=== PATIENT | male | born 1955 | race Caucasian/White ===

== ENCOUNTER 2017-08-29 13:49 | Inpatient (IN) | payer BC, OTHER ==
[~2017-08-29 13:49] MED LIST: ALBUAER3 INH; CLON0.5T PO; LOSA50TA PO; METO25TA3 PO; MIRTA15 PO; NORC5TAB PO; RISP0.5T25 PO
[2017-08-29 14:29] VITALS: BP 131/90; PULSE 96; RESP 16; TEMP 98.7; O2SAT 96
[2017-08-29 14:59] LABS: AUTOMATED NEUTROPHIL # 5.4 TH/MM3 (1.8-7.7); BASOPHIL % 0.4 % (0.0-2.0); BILIRUBIN, URINE NEG (NEG); BLOOD, URINE MOD (NEG); EOSINOPHIL # 0.1 TH/MM3 (0-0.4); GLUCOSE,URINE NEG (NEG); HEMOGLOBIN 13.8 GM/DL (13.0-17.0); HYALINE CAST, URINE 7 /lpf (RARE); KETONE, URINE NEG (NEG); LYMPH % 20.4 % (9.0-44.0); LYMPHOCYTE # 1.6 TH/MM3 (1.0-4.8); MEAN CORPUSCULAR HGB CONC 35.5 % (32.0-36.0); MEAN PLATELET VOLUME 6.6 FL (7.0-11.0); MONO % 9.4 % (0.0-8.0); MONOCYTE # 0.7 TH/MM3 (0-0.9); NEUT % 68.8 % (16.0-70.0); NITRITE,URINE NEG (NEG); PLATELET COUNT 288 TH/MM3 (150-450); RED BLOOD COUNT 4.19 MIL/MM3 (4.50-5.90); RED CELL DISTRIBUTION WIDTH 14.4 % (11.6-17.2); URINE COLOR YELLOW (YELLW/STRAW); URINE LEUKOCYTE ESTERASE NEG (NEG); WHITE BLOOD COUNT 7.8 TH/MM3 (4.0-11.0)
[2017-08-29 15:07] LABS: ALBUMIN 3.7 GM/DL (3.4-5.0); ALT (GPT) 25 U/L (12-78); AST (GOT) 22 U/L (15-37); BICARBONATE 29.9 MEQ/L (21.0-32.0); BLOOD UREA NITROGEN 8 MG/DL (7-18); CALCIUM 8.5 MG/DL (8.5-10.1); CHLORIDE 99 MEQ/L (98-107); CREATININE 0.78 MG/DL (0.60-1.30); GLOMERULAR FILTRATION RATE 100 ML/MIN (>89); GLUCOSE,RANDOM 94 MG/DL (74-106); SODIUM (NA) 135 MEQ/L (136-145)
[2017-08-29 15:17] LABS: ALKALINE PHOSPHATASE 91 U/L (45-117); TOTAL BILIRUBIN ADULT 0.7 MG/DL (0.2-1.0); TOTAL PROTEIN 7.1 GM/DL (6.4-8.2)
--- NOTE | 2017-08-29 15:33 | PD ---
HPI Chief Complaint: Psychiatric Symptoms Time Seen by Provider: 14:17 Travel History International Travel<30 days: No Contact w/Intl Traveler<30days: No History of Present Illness HPI 62-year-old [place] , is brought in under the Street act with suicidal ideation and reports of PTSD symptoms after stopping his meds due to "side effects". Patient complains of ongoing left leg pain which occurs with ambulation, and improves with rest. Patient states he can walk approximately 10 minutes before the pain gets so bad he has to stop. He describes as a muscular pain from the calf up into the thigh. He has no swelling or edema noted. Patient has never been diagnosed with claudication prior according to him. He denies any other acute medical problems. He is allergic to ibuprofen, methocarbamol, morphine, Naprosyn, and tramadol PFSH Past Medical History Depression: Yes Cancer: No Cardiovascular Problems: Yes COPD: Yes Diabetes: No Headaches: No Hypertension: Yes Psychiatric: Yes (Multiple Event Continuious Action PTSD, per patient) Seizures: No Social History Alcohol Use: No (UTO) Tobacco Use: Yes Allergies-Medications (Allergen,Severity, Reaction): Coded Allergies: morphine (Verified Allergy, Severe, 07/23/17) ibuprofen (Verified Adverse Reaction, Mild, Nausea/Vomiting, 07/23/17) methocarbamol (Verified Adverse Reaction, Mild, Nausea/Vomiting, 07/23/17) naproxen (Verified Adverse Reaction, Mild, Nausea/Vomiting, 07/23/17) tramadol (Verified Adverse Reaction, Mild, Diarrhea, 07/23/17) Reported Meds & Prescriptions Reported Meds & Active Scripts Active Risperdal (Risperidone) 0.5 Mg Tab 0.5 Mg PO BID Proair Hfa 8.5 GM Inh (Albuterol Sulfate) 90 Mcg/Act Aer 2 Puff INH Q6H PRN 108 mcg/actuation [place] (Hydrocodone-Acetaminophen) 5 Mg-325 Mg Tab 1 Tab PO Q6H PRN Mirtazapine 15 Mg Tab 15 Mg PO HS Clonazepam 0.5 Mg Tab 0.5 Mg PO TID Losartan (Losartan Potassium) 50 Mg Tab 50 Mg PO DAILY Metoprolol Tartrate 25 Mg Tab 25 Mg PO BID Review of Systems Except as stated in HPI: all other systems reviewed are Neg General / Constitutional: No: Fever Eyes: No: Visual changes HENT: No: Headaches Cardiovascular: No: Chest Pain or Discomfort Respiratory: No: Shortness of Breath Gastrointestinal: No: Abdominal Pain Genitourinary: No: Dysuria Musculoskeletal: Positive: Myalgias (See history of present illness.), Cramping (See history of present illness), No: Arthralgias, Limited ROM, Weakness, Edema, Pain Skin: No Rash Neurologic: No: Weakness Psychiatric: Positive: Suicidal Ideations, No: Depression Endocrine: No: Polydipsia Hematologic/Lymphatic: No: Easy Bruising Physical Exam Narrative GENERAL: Patient appears in no acute distress. He is actually quite clear today SKIN: Warm and dry. Normal color. Normal turgor. No signs of trauma or cellulitis per HEAD: Atraumatic. Normocephalic. EYES: Pupils equal and round. No scleral icterus. No injection or drainage. ENT: No nasal bleeding or discharge. Mucous membranes pink and moist. Poor dental health. Pharynx is clear. Airways patent NECK: Trachea midline. Supple and nontender. CARDIOVASCULAR: Regular rate and rhythm. RESPIRATORY: No accessory muscle use. Clear to auscultation. Breath sounds equal bilaterally. GASTROINTESTINAL: Abdomen soft, non-tender, nondistended. Hepatic and splenic margins not palpable. MUSCULOSKELETAL: Extremities without clubbing, cyanosis, or edema. No obvious deformities. No increased pain with palpation or range of motion. NEUROLOGICAL: Awake and alert. No obvious cranial nerve deficits. Motor grossly within normal limits. Five out of 5 muscle strength in the arms and legs. Normal speech. PSYCHIATRIC: Appropriate mood and affect; insight and judgment normal. Data Data Last Documented VS Vital Signs Date Time Temp Pulse Resp B/P (MAP) Pulse Ox O2 Delivery O2 Flow Rate FiO2 08/29/17 14:29 98.7 96 16 131/90 (104) 96 Room Air Orders Orders Complete Blood Count With Diff (08/29/17 14:15) Comprehensive Metabolic Panel (08/29/17 14:15) Thyroid Stimulating Hormone (08/29/17 14:15) Urinalysis - C+S If Indicated (08/29/17 14:15) Psych Screen (08/29/17 14:15) Drug Screen, Random Urine (08/29/17 14:15) Alcohol (Ethanol) (08/29/17 14:15) Acetaminophen (Tylenol) (08/29/17 15:45) Diet Regular Basic (08/29/17 Dinner) Labs Laboratory Tests Test 08/29/17 14:37 White Blood Count 7.8 TH/MM3 Red Blood Count 4.19 MIL/MM3 Hemoglobin 13.8 GM/DL Hematocrit 39.0 % Mean Corpuscular Volume 93.0 FL Mean Corpuscular Hemoglobin 33.0 PG Mean Corpuscular Hemoglobin Concent 35.5 % Red Cell Distribution Width 14.4 % Platelet Count 288 TH/MM3 Mean Platelet Volume 6.6 FL Neutrophils (%) (Auto) 68.8 % Lymphocytes (%) (Auto) 20.4 % Monocytes (%) (Auto) 9.4 % Eosinophils (%) (Auto) 1.0 % Basophils (%) (Auto) 0.4 % Neutrophils # (Auto) 5.4 TH/MM3 Lymphocytes # (Auto) 1.6 TH/MM3 Monocytes # (Auto) 0.7 TH/MM3 Eosinophils # (Auto) 0.1 TH/MM3 Basophils # (Auto) 0.0 TH/MM3 CBC Comment DIFF FINAL Differential Comment Urine Color YELLOW Urine Turbidity CLEAR Urine pH 6.0 Urine Specific [place] 1.008 Urine Protein NEG mg/dL Urine Glucose (UA) NEG mg/dL Urine Ketones NEG mg/dL Urine Occult Blood MOD Urine Nitrite NEG Urine Bilirubin NEG Urine Urobilinogen LESS THAN 2.0 MG/DL Urine Leukocyte Esterase NEG Urine RBC 5 /hpf Urine Hyaline Casts 7 /lpf Urine Granular Casts 3 /lpf Microscopic Urinalysis Comment CULT NOT INDICATED Blood Urea Nitrogen 8 MG/DL Creatinine 0.78 MG/DL Random Glucose 94 MG/DL Total Protein 7.1 GM/DL Albumin 3.7 GM/DL Calcium Level 8.5 MG/DL Alkaline Phosphatase 91 U/L Aspartate Amino Transf (AST/SGOT) 22 U/L Alanine Aminotransferase (ALT/SGPT) 25 U/L Total Bilirubin 0.7 MG/DL Sodium Level 135 MEQ/L Potassium Level 4.0 MEQ/L Chloride Level 99 MEQ/L Carbon Dioxide Level 29.9 MEQ/L Anion Gap 6 MEQ/L Estimat Glomerular Filtration Rate 100 ML/MIN Thyroid Stimulating Hormone 3rd Gen 0.718 uIU/ML Urine Opiates Screen NEG Urine Barbiturates Screen NEG Urine Amphetamines Screen POS Urine Benzodiazepines Screen NEG Urine Cocaine Screen NEG Urine Cannabinoids Screen NEG Ethyl Alcohol Level LESS THAN 3 MG/DL MDM Medical Decision Making Medical Screen Exam Complete: Yes Emergency Medical Condition: Yes Medical Record Reviewed: Yes Differential Diagnosis Street act. Suicidal ideation. PTSD. Question claudication left leg. Narrative Course Psychiatric labs ordered as per protocol Patient is given Tylenol 650 mg p.o. now Patient is medically clear for psychiatric evaluation Psych screen is ordered. Recommend follow-up with vascular surgeon outpatient for his left leg complaints. Diagnosis Primary Impression: Left leg claudication Condition: Stable Maciej Nelson Aug 29, 2017 15:33
[2017-08-29] MEDS ORDERED: ACETAMINOPHEN 325 MG TAB PO ONE ×2 (15:45→23:45)
[2017-08-29 17:49] VITALS: BP 142/76; PULSE 81; RESP 16; TEMP 98.6; O2SAT 96
[2017-08-29 22:23] VITALS: BP 146/86; PULSE 72; RESP 20; O2SAT 98
[2017-08-30 02:14] VITALS: BP 169/77; PULSE 76; RESP 18; TEMP 98.7; O2SAT 95
[2017-08-30] MEDS ORDERED: ACETAMINOPHEN 500 MG CPLT PO ONE (05:30)
[2017-08-30 06:32] VITALS: BP 168/93; PULSE 97; RESP 18; TEMP 99.1; O2SAT 95
[2017-08-30 10:00] VITALS: BP 153/86; PULSE 97; RESP 20
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
[2017-08-30] MEDS ORDERED: MAGNESIUM HYDROXIDE SUSP 30 ML CUP PO PRN (11:00)
[2017-08-30] MEDS ORDERED: ALUMINUM/MAGNESIUM/SIMETH 30 ML CUP PO PRN (11:00)
[2017-08-30] MEDS ORDERED: ACETAMINOPHEN 325 MG TAB PO PRN (11:00)
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
[2017-08-30 14:40] VITALS: BP 190/106; PULSE 92; RESP 16; TEMP 97.9; O2SAT 99
[2017-08-30] MEDS ORDERED: ALBUTEROL SULFATE 90 MCG/ACT HFA 8 GM INHALER INH PRN (14:45)
[2017-08-30] MEDS ORDERED: HYDR50CA PO (14:59)
[2017-08-30] MEDS ORDERED: ALBUAER3 INH (14:59)
[2017-08-30] MEDS: cloNIDine HCL 0.1 MG TAB PO PRN ×2 (15:09→20:40)
[2017-08-30] MEDS: ACETAMINOPHEN/HYDROcodone 325 MG/5 MG TAB PO PRN ×2 (15:10→20:28)
[2017-08-30 16:20] VITALS: BP 169/88; PULSE 77
[2017-08-30 18:04] VITALS: BP 184/92; PULSE 70; RESP 18; TEMP 97.4; O2SAT 96
--- NOTE | 2017-08-30 18:52 | RADRPT ---
EXAM DATE/TIME: 08/30/2017 18:11 [place] COMPARISON: No previous studies available for comparison. INDICATIONS : Bruit. MEDICAL HISTORY : Hypertension. Chronic obstructive pulmonary disease. PTSD. Depression. Anxiety. SURGICAL HISTORY : Unable to obtain. ENCOUNTER: Initial ACUITY: 1 day PAIN SCORE: 0/10 LOCATION: Bilateral neck PEAK SYSTOLIC VELOCITIES (cm/sec): ICA/CCA RATIO: Right: 0.7 Left: 1.0 ICA: Right: 54.2 Left: 80.6 CCA: Right: 74.2 Left: 83.9 ECA: Right: 64.6 Left: 72.5 VERTEBRAL: Right: 76.2 antegrade Left: 18.6 antegrade Elevated flow velocities and ICA/CCA ratios have been found to correlate with increased degrees of vessel stenosis, calculated as percentage of diameter relative to a normal segment of distal ICA/CCA FINDINGS: RIGHT CAROTID: No significant stenosis is visualized. The waveforms are within normal limits. LEFT CAROTID: No significant stenosis is visualized. The waveforms are within normal limits. VERTEBRAL ARTERIES: Antegrade flow is seen in both vertebral arteries. Abnormal waveform the left vertebral artery. MISCELLANEOUS: None. CONCLUSION: 1. There is moderate visible plaque in the carotid arteries bilaterally, especially around the caroti d bifurcations without hemodynamically significant stenosis identified. Vertebral artery flow antegra de bilaterally. Loki Ellis MD on August 30, 2017 at 18:50 Board Certified Radiologist. This report was verified electronically.
[2017-08-30] MEDS: METOPROLOL TARTRATE 25 MG TAB PO SCH (20:28)
[2017-08-31] MEDS: ACETAMINOPHEN/HYDROcodone 325 MG/5 MG TAB PO PRN ×2 (04:32→11:21)
[2017-08-31 05:59] VITALS: BP 170/99; PULSE 73; RESP 20; O2SAT 97
[2017-08-31 08:27] LABS: BICARBONATE 28.8 MEQ/L (21.0-32.0); BLOOD UREA NITROGEN 10 MG/DL (7-18); CALCIUM 8.9 MG/DL (8.5-10.1); CHLORIDE 102 MEQ/L (98-107); CHOLESTEROL 186 MG/DL (120-200); CREATININE 0.74 MG/DL (0.60-1.30); GLOMERULAR FILTRATION RATE 106 ML/MIN (>89); GLUCOSE,RANDOM 90 MG/DL (74-106); SODIUM (NA) 136 MEQ/L (136-145); TRIGLYCERIDES 63 MG/DL (42-150)
[2017-08-31] MEDS: METOPROLOL TARTRATE 25 MG TAB PO SCH (08:42)
[2017-08-31 08:52] LABS: CHOLESTEROL/ HDL RATIO 3.19 RATIO; HDL CHOLESTEROL 58.2 MG/DL (40.0-60.0); LDL CHOLESTEROL 115 MG/DL (0-99)
[2017-08-31] MEDS ORDERED: ATORVASTATIN 20 MG TAB PO SCH (09:00)
[2017-08-31] MEDS ORDERED: ASPIRIN EC 81 MG TABEC PO SCH (09:00)
[2017-08-31] MEDS ORDERED: LOSARTAN 50 MG TAB PO SCH (09:00)
--- NOTE | 2017-08-31 11:29 | HHI.HP ---
Provisional Diagnosis Admission Date Aug 30, 2017 at 11:03 [place] I. PTSD f 43.10 Certification of Person's Competence To Provide Express and Informed Consent I have personally examined Alex Brumfield , a person being served at [facility] on, Aug 31, 2017 11:14. Express and informed consent means consent voluntarily given in writing, by a competent person, after sufficient explanation and disclosure of the subject matter involved to enable the person to make a knowing and willful decision without any element of force, fraud, deceit, duress, or other form of constraint or coercion. This person is 18 years of age or older, is not now known to be incompetent to consent to treatment with a guardian advocate, and does not have a health care surrogate or proxy currently making medical treatment decisions. I have found this person to be one of the following: []xxx Competent to provide express and informed consent, as defined above, for voluntary admission to this facility and is competent to provide express and informed consent for treatment. He/she has the consistent capacity to make well reasoned, willful, and knowing decisions concerning his or her medical or mental health treatment. The person fully and consistently understands the purpose of the admission for examination/placement and is fully capable of personally exercising all rights assured [place] Incompetent to provide express and informed consent to voluntary admission, and this is incompetent to provide express and informed consent to treatment. The person must be transferred to involuntary status and a petition for a guardian advocate filed with the Circuit Court. [] Refusing to provide express and informed consent to voluntary admission but is competent to provide express and informed consent for treatment. The person must be discharged or transferred to involuntary status. Form shall be completed within 24 hours of a person's arrival at the receiving facility and filed in the clinical record of each person: 1. Admitted on a voluntary basis 2. Permitted to provide express and informed consent to his/her own treatment 3. Allowed to transfer from involuntary to voluntary status 4. Prior to permitting a person to consent to his or her own treatment after having been previously found incompetent to consent to treatment. History of Present Illness Capacity: Has Capacity HPI Patient is a 62 old white male well known to me from prior contacts most recently be hospitalization here 07/14/17 through 07/17/17. Discharge medications will follow through Rashad Ricardo. It appears she said of more recent hospitalization at [facility] related to somatic issues complaining of leg pain and some type of of breathing difficulty. He was discharged from there is a week ago. She returned to this area and says he was misunderstood in the ED that he wanted further checkups and medical follow-up. He denies any suicidality homicidality voices or visions. Says his back compliant with his psychotropic medications. The question the efficacy. However in our emergency department his urine toxicology is positive for and start a maintenance. He denies using amphetamines. Though he states he did use some other person's cough syrup. There is a Street act by the [facility] [employer] dated 08/29/17 at 1230 hrs. 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 When asked about side effects he said nightmares and hallucinations all the time saying he felt like was back in [place] he also felt like his legs were hurting from old injuries it appears she is homeless now bouncing from house to house. However when discussing this with patient nurse Sarah was present throughout session. As mentioned above patient states there is a confusion he was returning here to get another check on his leg. He denies suicidality homicidality voices or visions at this time. Does acknowledge occasional symptoms related to the PTSD. Says his compliant with medication. I question his honesty related to the amphetamine use. Then event at this time I feel patient does not meet Street criteria. He does wish to be discharged he does contract to do no harm and follow-up through Rashad [place] act thus patient will be discharged today with no Rx by me me continues on medications that he has possession of Review of Systems Constitutional: DENIES: Diaphoretic episodes, Fatigue, Fever, Weight gain, Weight loss, Chills, Dizziness, Change in appetite, Night Sweats Endocrine: DENIES: Heat/cold intolerance, Polydipsia, Polyuria, Polyphagia Eyes: DENIES: Blurred vision, Diplopia, Eye inflammation, Eye pain, Vision loss , Photosensitivity, Double Vision Ears, nose, mouth, throat: DENIES: Tinnitus, Hearing loss, Vertigo, Nasal discharge, Oral lesions, Throat pain, Hoarseness, Ear Pain, Running Nose, Epistaxis, Sinus Pain, Toothache, Odynophagia Respiratory: DENIES: Apneas, Cough, Snoring, Wheezing, Hemoptysis, Sputum production, Shortness of breath Cardiovascular: DENIES: Chest pain, Palpitations, Syncope, Dyspnea on Exertion , PND, Lower Extremity Edema, Orthopnea, Claudication Gastrointestinal: DENIES: Abdominal pain, Black stools, Bloody stools, Constipation, Diarrhea, Nausea, Vomiting, Difficulty Swallowing, Anorexia Genitourinary: DENIES: Sexual dysfunction, Urinary frequency, Urinary incontinence, Urgency, Hematuria, Dysuria, Nocturia, Penile Discharge, Testicular Pain, Testicular Swelling Musculoskeletal: COMPLAINS OF: Joint pain (left leg pain) Integumentary: DENIES: Abnormal pigmentation, Nail changes, Pruritus, Rash Hematologic/lymphatic: DENIES: Bruising, Lymphadenopathy Immunologic/allergic: DENIES: Eczema, Urticaria Neurologic: DENIES: Abnormal gait, Headache, Localized weakness, Paresthesias, Seizures, Speech Problems, Tremor, Poor Balance Psychiatric: DENIES: Anxiety, Confusion, Mood changes, Depression, Hallucinations, Agitation, Suicidal Ideation, Homicidal Ideation, Delusions Past Psych History Psychological trauma history Patient with history of PTSD related to combat Violence risk - others (6 mos) Low Violence risk - self (6 mos) Low Substance Abuse History Drugs/Alcohol past 12 months Patient denies those urine toxicology is positive for amphetamines Past Family Social History Coded Allergies: morphine (Verified Allergy, Severe, 07/23/17) ibuprofen (Verified Adverse Reaction, Mild, Nausea/Vomiting, 07/23/17) methocarbamol (Verified Adverse Reaction, Mild, Nausea/Vomiting, 07/23/17) naproxen (Verified Adverse Reaction, Mild, Nausea/Vomiting, 07/23/17) tramadol (Verified Adverse Reaction, Mild, Diarrhea, 07/23/17) Active Scripts Risperidone (Risperdal) 0.5 Mg Tab, 0.5 MG PO BID for health, #60 TAB 0 Refills Prov:Artie De Santiago MD 07/17/17 Albuterol 8.5 GM Inh (Proair Hfa 8.5 GM Inh) 90 Mcg/Act Aer, 2 PUFF INH Q6H Y for SHORTNESS OF BREATH, #1 INHALER 0 Refills 108 mcg/actuation Prov:Artie De Santiago MD 07/17/17 Hydrocodone-Acetaminophen ([place]) 5 Mg-325 Mg Tab, 1 TAB PO Q6H Y for PAIN, #15 TAB 0 Refills Prov:Artie De Santiago MD 07/17/17 Mirtazapine (Mirtazapine) 15 Mg Tab, 15 MG PO HS for Depression Control, #30 TAB 0 Refills Prov:Artie De Santiago MD 07/17/17 Clonazepam (Clonazepam) 0.5 Mg Tab, 0.5 MG PO TID, #45 TAB 0 Refills Prov:Artie De Santiago MD 07/17/17 Losartan (Losartan) 50 Mg Tab, 50 MG PO DAILY for Blood Pressure Management, # 30 TAB 0 Refills Prov:Artie De Santiago MD 07/17/17 Metoprolol Tartrate (Metoprolol Tartrate) 25 Mg Tab, 25 MG PO BID for health, # 60 TAB 0 Refills Prov:Artie De Santiago MD 07/17/17 Reported Medications Hydroxyzine Pamoate (Hydroxyzine Pamoate) 50 Mg Cap, 50 MG PO TID Y for MILD ANXIETY OR AGITATION, CAP 0 Refills 08/30/17 Albuterol 8.5 GM Inh (Proair Hfa 8.5 GM Inh) 90 Mcg/Act Aer, 2 PUFF INH Q4-6H Y for SHORTNESS OF BREATH, #1 INHALER 0 Refills 108 mcg/actuation 08/30/17 Current Medications Medications (Trade) Dose Ordered Sig/Kimi Route Start Time Stop Time Status Last Admin (Tylenol) 650 mg Q4H PRN PO 08/30/17 11:00 (Milk Of Magnesia Liq) 30 ml DAILY PRN PO 08/30/17 11:00 (Mag-Al Plus Susp Liq) 30 ml Q6H PRN PO 08/30/17 11:00 (Ecotrin Ec) 81 mg DAILY PO 08/31/17 09:00 08/31/17 08:42 (Proair Hfa Inh) 2 puff Q6H PRN INH 08/30/17 14:45 (Cozaar) 50 mg DAILY PO 08/31/17 09:00 08/31/17 08:42 (Lopressor) 25 mg BID PO 08/30/17 21:00 08/31/17 08:42 (Lipitor) 20 mg DAILY PO 08/31/17 09:00 08/31/17 08:42 ([place] 5-325 Mg) 1 tab Q6H PRN PO 08/30/17 14:45 08/31/17 04:32 (Catapres) 0.1 mg Q6H PRN PO 08/30/17 14:45 08/30/17 20:40 Family Psych History Patient denies Social History Patient states there is a that it is in a local longterm Patient's Strengths (min. 2) Patient verbal labile axis health care Physical Exam Patient medically cleared ED at the present time patient sitting quietly on his bed in his room nurse Crystal present, patient no acute distress, patient no respirator distress, no complaints of abdominal pain. Patient moving all 4 extremities without difficulty complaints of leg pain his left lower leg Vital Signs Vital Signs Date Time Temp Pulse Resp B/P (MAP) Pulse Ox O2 Delivery O2 Flow Rate FiO2 08/31/17 05:59 73 20 170/99 (122) 97 08/30/17 18:04 97.4 08/30/17 10:00 Room Air I/O 08/31/17 08/31/17 09/01/17 08:00 16:00 00:00 Intake Total 240 ml 600 ml Balance 240 ml 600 ml Lab Results Test 08/31/17 07:15 Blood Urea Nitrogen 10 MG/DL Creatinine 0.74 MG/DL Random Glucose 90 MG/DL Calcium Level 8.9 MG/DL Sodium Level 136 MEQ/L Potassium Level 4.8 MEQ/L Chloride Level 102 MEQ/L Carbon Dioxide Level 28.8 MEQ/L Anion Gap 5 MEQ/L Estimat Glomerular Filtration Rate 106 ML/MIN Triglycerides Level 63 MG/DL Cholesterol Level 186 MG/DL LDL Cholesterol 115 MG/DL HDL Cholesterol 58.2 MG/DL Cholesterol/HDL Ratio 3.19 RATIO Vitamin B12 Level 338 PG/ML 25-Hydroxy Vitamin D Total 10.4 ng/ML Mental Status Examination Appearance: Appropriate, Disheveled (appears older than stated age, very thin.) Consciousness: Alert Orientation: x4 Motor Activity: Normal gait Speech: Unremarkable Language: Adequate Fund of Knowledge: Adequate Attention and Concentration: Adequate Memory: Unremarkable Mood: Anxious, Other (anxious and depressed) Affect: Appropriate Thought Process & Associations: Intact Thought Content: Appropriate Hallucination Type: None Delusion Type: None Suicidal Ideation: No Suicidal Plan: No Suicidal Intention: No Homicidal Ideation: No Homicidal Plan: No Homicidal Intention: No Insight: Fair Judgment: Adequate Assessment & Plan Problem List: (1) PTSD (post-traumatic stress disorder) ICD Codes: F43.10 - Post-traumatic stress disorder, unspecified Assessment & Plan Estimated LOS: days patient does not meet Street criteria will lift [place] act patient to be discharged from self, no Rx by me, he may continue his own schedule medications, follow-up [facility] Discharge Planning See above Request HC Surrog/Guard Advoc?: No Artie De Santiago MD Aug 31, 2017 11:29
--- NOTE | 2017-08-31 11:33 | HHI.DS ---
Psychiatry Discharge Summary Inpatient Psychiatric care?: Yes Advance Directive: No Mental Health AdvanceDirective: No Health Care Proxy: No Admission Admission Date Aug 30, 2017 at 11:03 Admission Diagnosis: (1) PTSD (post-traumatic stress disorder) ICD Code: F43.10 - Post-traumatic stress disorder, unspecified Brief History Patient is a 62 old white male well known to me from prior contacts most recently be hospitalization here 07/14/17 through 07/17/17. Discharge medications will follow through Rashad Ricardo. It appears she said of more recent hospitalization at [facility] related to somatic issues complaining of leg pain and some type of of breathing difficulty. He was discharged from there is a week ago. She returned to this area and says he was misunderstood in the ED that he wanted further checkups and medical follow-up. He denies any suicidality homicidality voices or visions. Says his back compliant with his psychotropic medications. The question the efficacy. However in our emergency department his urine toxicology is positive for and start a maintenance. He denies using amphetamines. Though he states he did use some other person's cough syrup. There is a Street act by the [facility] [employer] dated 08/29/17 at 1230 hrs. 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 When asked about side effects he said nightmares and hallucinations all the time saying he felt like was back in [place] he also felt like his legs were hurting from old injuries it appears she is homeless now bouncing from house to house. However when discussing this with patient nurse Sarah was present throughout session. As mentioned above patient states there is a confusion he was returning here to get another check on his leg. He denies suicidality homicidality voices or visions at this time. Does acknowledge occasional symptoms related to the PTSD. Says his compliant with medication. I question his honesty related to the amphetamine use. Then event at this time I feel patient does not meet Street criteria. He does wish to be discharged he does contract to do no harm and follow-up through Rashad Ricardo act thus patient will be discharged today with no Rx by me me continues on medications that he has possession of Tobacco Use In Past 30 Days: 5 or More Cigarettes/Day Alcohol Use: Never Hospital Course Please see above dictation brief history, patient does not meet Street criteria will lift [place] act patient to be discharged to himself, no Rx by me, continue own schedule medications at home, follow-up [facility] outpatient Results Blood Pressure 170 / 99 Vital Signs Date Time Temp Pulse Resp B/P (MAP) Pulse Ox O2 Delivery O2 Flow Rate FiO2 08/31/17 05:59 73 20 170/99 (122) 97 08/30/17 18:04 97.4 08/30/17 10:00 Room Air Laboratory Tests Test 08/29/17 14:37 08/31/17 07:15 Red Blood Count 4.19 MIL/MM3 (4.50-5.90) Mean Platelet Volume 6.6 FL (7.0-11.0) Monocytes (%) (Auto) 9.4 % (0.0-8.0) Urine Occult Blood MOD (NEG) Urine RBC 5 /hpf (0-3) Sodium Level 135 MEQ/L (136-145) Urine Amphetamines Screen POS (NEG) LDL Cholesterol 115 MG/DL (0-99) 25-Hydroxy Vitamin D Total 10.4 ng/ML (30-100) Laboratory Results Test 08/31/17 07:15 Cholesterol Level 186 MG/DL (120-200) HDL Cholesterol 58.2 MG/DL (40.0-60.0) LDL Cholesterol 115 MG/DL (0-99) Triglycerides Level 63 MG/DL (42-150) Summary of Procedures None done Imaging Last Impressions Carotid Artery Ultrasound 08/30/17 0000 Signed Impressions: Service Date/Time: Wednesday, August 30, 2017 18:11 - CONCLUSION: 1. There is moderate visible plaque in the carotid arteries bilaterally, especially around the carotid bifurcations without hemodynamically significant stenosis identified. Vertebral artery flow antegrade bilaterally. Loki Ellis MD Pending results at discharge: No Medications # of Antipsychotic meds at D/C: 0 Approp Antipsych med options 1 - Minimum of three failed multiple trials of monotherapy. 2 - Documented plan to taper to monotherapy due to previous use of multiple meds OR cross-taper in progress at D/C. 3 - Documentation of augmentation of Clozapine. 4 - Justification other than those listed in allowable values 1-3, document here : Discharge Discharge Date: Aug 31, 2017 Discharge Diagnosis: (1) PTSD (post-traumatic stress disorder) ICD Code: F43.10 - Post-traumatic stress disorder, unspecified Pt Condition on Discharge: Stable Discharge Disposition: Discharge Home Discharge Instructions Diet Instructions: As Tolerated, No Restrictions Activities you can perform: Regular-No Restrictions Scheduled Appointment: Rashad Nair Discharge Time > 30 minutes Mental Status Examination Appearance: Appropriate, Disheveled (appears older than stated age, very thin.) Consciousness: Alert Orientation: x4 Motor Activity: Normal gait Speech: Unremarkable Language: Adequate Fund of Knowledge: Adequate Attention and Concentration: Adequate Memory: Unremarkable Mood: Anxious, Other (anxious and depressed) Affect: Appropriate Thought Process & Associations: Intact Thought Content: Appropriate Hallucination Type: None Delusion Type: None Suicidal Ideation: No Suicidal Plan: No Suicidal Intention: No Homicidal Ideation: No Homicidal Plan: No Homicidal Intention: No Insight: Fair Judgment: Adequate Discharge/Advance Care Plan Health Problems: (1) PTSD (post-traumatic stress disorder) Goals to promote your health * To prevent worsening of your condition and complications * To maintain your health at the optimal level Directions to meet your goals Take your medications as prescribed Follow your dietary instruction Follow activity as directed Keep your appointments as scheduled Take your immunizations and boosters as scheduled If your symptoms worsen call your PCP, if no PCP go to Urgent Care Center or Emergency Room For 13/01 questions related to your inpatient stay or results of tests pending at discharge, please contact Dr. Artie De Santiago at Smoking is Dangerous to Your Health. Avoid second hand smoking Artie De Santiago MD Aug 31, 2017 11:33
[2017-09-01 16:53] LABS: HEMOGLOBIN A1C 5.8 % (4.3-6.0)
== END 2017-08-31 11:30 | disposition home or self-care (01) | DRG 882 ==
LOC: NEPJ 13:49 → NEDA 08-30 11:03 → H250 08-30 14:25
PROVIDERS: ADMIT Psychiatry & Neurology Psychiatry; ATTEND Psychiatry & Neurology Psychiatry
DX: F43.10 Post-traumatic stress disorder, unspecified (principal); R45.851 Suicidal ideations; R44.3 Hallucinations, unspecified; I10 Essential (primary) hypertension; J44.9 Chronic obstructive pulmonary disease, unspecified; I73.9 Peripheral vascular disease, unspecified; E78.5 Hyperlipidemia, unspecified; G89.29 Other chronic pain; M54.9 Dorsalgia, unspecified; R09.89 Other specified symptoms and signs involving the circulatory and respiratory systems; F32.9 Major depressive disorder, single episode, unspecified; F17.210 Nicotine dependence, cigarettes, uncomplicated; Z59.0 Homelessness; Z88.6 Allergy status to analgesic agent; Z91.14 Patient's other noncompliance with medication regimen
CPT/HCPCS: 80048; 80053; 80061; 80307; 81001; 82306; 82607; 83036; 84443; 85025; 93880; 99285